=== PATIENT | female | born 1980 | race Caucasian/White ===

== ENCOUNTER 2016-10-14 12:02 | Emergency (ER) | payer SELFPAY ==
--- NOTE | 2016-10-14 12:31 | ER Document Report ---
ED Medical Screen (RME) - General Chief Complaint: Toothache Stated Complaint: TOOTH PAIN Mode of Arrival: Ambulatory Information source: Patient Notes: 36 y/o F presents to ED c/o left sided dental pain since yesterday. Denies difficulty breathing or swallowing. I have greeted and performed a rapid initial assessment of this patient. A comprehensive ED assessment and evaluation of the patient, analysis of test results and completion of the medical decision making process will be conducted by additional ED providers. TRAVEL OUTSIDE OF THE [place] IN LAST 30 DAYS: No - Related Data Allergies/Adverse Reactions: tramadol Allergy (Verified 10/14/16 12:22) Past Medical History - Social History Chew tobacco use (# tins/day): No Frequency of alcohol use: Rare Drug Abuse: None Renal/ Medical History: Denies: Hx Peritoneal Dialysis Physical Exam - Vital signs Vitals: Temp Pulse Resp BP Pulse Ox 98.3 F 74 16 150/95 H 97 10/14/16 12:19 10/14/16 12:19 10/14/16 12:19 10/14/16 12:19 10/14/16 12:19 - General General appearance: Appears well, Alert In distress: None Course - Vital Signs Vital signs: Temp Pulse Resp BP Pulse Ox 98.3 F 74 16 150/95 H 97 10/14/16 12:19 10/14/16 12:19 10/14/16 12:19 10/14/16 12:19 10/14/16 12:19
--- NOTE | 2016-10-14 14:27 | ER Document Report ---
HPI - HPI Patient complains to provider of: dental pain Onset: Yesterday Onset/Duration: Gradual Quality of pain: Achy Pain Level: 5 Context: Patient complains of pain from a broken tooth that started yesterday. No fever or facial swelling. Associated Symptoms: Other - Dental pain Exacerbated by: Denies Relieved by: Denies Similar symptoms previously: Yes Recently seen / treated by doctor: No - ROS ROS below otherwise negative: Yes Systems Reviewed and Negative: Yes All other systems reviewed and negative - CONSTITUTIONAL Constitutional: DENIES: Fever - EENT Notes: Dental pain - RESPIRATORY Respiratory: DENIES: Trouble Breathing, Coughing - GASTROINTESTINAL Gastrointestinal: DENIES: Nausea, Patient vomiting - MUSCULOSKELETAL Musculoskeletal: DENIES: Back Pain, Neck Pain - DERM Skin Color: Normal Skin Problems: None Past Medical History - General Information source: Patient - Social History Smoking Status: Current Every Day Smoker Chew tobacco use (# tins/day): No Frequency of alcohol use: Rare Drug Abuse: None Occupation: none Lives with: Family Family History: Reviewed & Not Pertinent Patient has suicidal ideation: No Patient has homicidal ideation: No - Medical History Medical History: Negative Renal/ Medical History: Denies: Hx Peritoneal Dialysis Past Surgical History: Reports: Hx Section, Hx Herniorrhaphy, Hx Tubal Ligation Vertical Provider Document - CONSTITUTIONAL Agree With Documented VS: Yes Exam Limitations: No Limitations General Appearance: WD/WN, No Apparent Distress - INFECTION CONTROL TRAVEL OUTSIDE OF THE [place] IN LAST 30 DAYS: No - HEENT HEENT: Atraumatic, Normocephalic Mouth Diagram: 1 - Dental decay, fracture, tenderness, no trismus, no sublingual or submental swelling - NECK Neck: Normal Inspection, Supple. negative: Lymphadenopathy-Left, Lymphadenopathy-Right - RESPIRATORY Respiratory: Breath Sounds Normal, Chest Non-Tender O2 Sat by Pulse Oximetry: 97 - CARDIOVASCULAR Cardiovascular: Regular Rate, Regular Rhythm, No Murmur - MUSCULOSKELETAL/EXTREMETIES Musculoskeletal/Extremeties: MAEW - NEURO Level of Consciousness: Awake, Alert, Appropriate Motor/Sensory: No Motor Deficit - DERM Integumentary: Warm, Dry, No Rash Course - Vital Signs Vital signs: Temp Pulse Resp BP Pulse Ox 98.3 F 74 16 150/95 H 97 10/14/16 12:19 10/14/16 12:19 10/14/16 12:19 10/14/16 12:19 10/14/16 12:19 Discharge - Discharge Clinical Impression: Pain due to dental caries, Elevated blood pressure reading Condition: Stable Disposition: HOME, SELF-CARE Instructions: Oral Narcotic Medication ([facility]), Toothache ([facility]), Penicillin V K ( [facility]), [facility] Additional Instructions: Return immediately for any new or worsening symptoms Followup with your primary care provider, call tomorrow to make a followup appointment Follow up with a dental provider Prescriptions: Oxycodone HCl/Acetaminophen [Percocet 5-325 mg Tablet] 1 tab PO ASDIR PRN #15 tablet PRN Reason: Penicillin V Potassium [Penicillin Vk 500 mg Tablet] 500 mg PO BID #20 tablet Forms: Elevated Blood Pressure Referrals: [facility] [Provider Group] - Follow up as needed [facility] [Provider Group] - Follow up as needed
[2016-10-14 14:31] VITALS: BP 142/90
== END 2016-10-14 14:31 | disposition home or self-care (01) ==
LOC: ER 12:02
DX: K02.9 Dental caries, unspecified (principal); K08.89 Other specified disorders of teeth and supporting structures; F17.200 Nicotine dependence, unspecified, uncomplicated; R03.0 Elevated blood-pressure reading, without diagnosis of hypertension
CPT/HCPCS: 99282

== ENCOUNTER 2017-02-13 21:35 | Emergency (ER) | payer MEDICAID ==
--- NOTE | 2017-02-14 01:40 | ER Document Report ---
HPI - HPI Patient complains to provider of: dental Pain Onset: This afternoon Onset/Duration: Gradual Quality of pain: Achy Pain Level: 5 Context: Pt complains of dental pain to broken tooth to left lower jaw. Patient without any facial swelling. Patient is concerned that she has a dental infection. No fever Associated Symptoms: Other - dental pain Exacerbated by: Denies Relieved by: Denies Similar symptoms previously: Yes Recently seen / treated by doctor: No - ROS ROS below otherwise negative: Yes Systems Reviewed and Negative: Yes All other systems reviewed and negative - EENT Notes: dental pain - NEURO Neurology: DENIES: Weakness - RESPIRATORY Respiratory: DENIES: Coughing - GASTROINTESTINAL Gastrointestinal: DENIES: Nausea, Patient vomiting - MUSCULOSKELETAL Musculoskeletal: DENIES: Neck Pain - DERM Skin Color: Normal Skin Problems: None Past Medical History - General Information source: Patient - Social History Smoking Status: Current Every Day Smoker Frequency of alcohol use: Occasional Drug Abuse: None Occupation: [employer] Lives with: Family Family History: Reviewed & Not Pertinent Patient has suicidal ideation: No Patient has homicidal ideation: No - Medical History Medical History: Negative Renal/ Medical History: Denies: Hx Peritoneal Dialysis Past Surgical History: Reports: Hx Section, Hx Cholecystectomy, Hx Herniorrhaphy, Hx Tubal Ligation Vertical Provider Document - CONSTITUTIONAL Agree With Documented VS: Yes Exam Limitations: No Limitations General Appearance: WD/WN, No Apparent Distress - INFECTION CONTROL TRAVEL OUTSIDE OF THE [place] IN LAST 30 DAYS: No - HEENT HEENT: Atraumatic, Normocephalic. negative: Pharyngeal Exudate, Pharyngeal Tenderness, Pharyngeal Erythema Mouth Diagram: 1 - dental fracture, tenderness, no abscess, no trismus - NECK Neck: Normal Inspection, Supple. negative: Lymphadenopathy-Left, Lymphadenopathy-Right - RESPIRATORY Respiratory: Breath Sounds Normal, No Respiratory Distress O2 Sat by Pulse Oximetry: 95 - CARDIOVASCULAR Cardiovascular: Regular Rate, Regular Rhythm, No Murmur - MUSCULOSKELETAL/EXTREMETIES Musculoskeletal/Extremeties: MAEW - NEURO Level of Consciousness: Awake, Alert, Appropriate Motor/Sensory: No Motor Deficit - DERM Integumentary: Warm, Dry Course - Re-evaluation Re-evalutation: 06/20/17 01:41 The patient has been informed that they may have pre-hypertension or hypertension based on a blood pressure reading in the emergency department. I recommend that patient call the primary care provider listed on their discharge instructions or a physician of their choice by this week to arrange follow-up for further evaluation of possible pre-hypertension her hypertension. - Vital Signs Vital signs: Temp Pulse Resp BP Pulse Ox 98.2 F 87 20 151/109 H 95 02/13/17 21:38 02/13/17 21:38 02/13/17 21:38 02/13/17 21:38 02/13/17 21:38 Discharge - Discharge Clinical Impression: Toothache, Elevated blood pressure reading Condition: Stable Disposition: HOME, SELF-CARE Instructions: Oral Narcotic Medication ([facility]), Toothache ([facility]), Penicillin V K ( [facility]), Dentist Additional Instructions: Return immediately for any new or worsening symptoms Followup with your primary care provider, call tomorrow to make a followup appointment to recheck your blood pressure Follow-up with dentist, call tomorrow for an appointment Prescriptions: Naproxen [Naprosyn 250 Nmg Tablet] 1 tab PO BID #14 tablet Penicillin V Potassium [Penicillin Vk 500 mg Tablet] 500 mg PO BID #20 tablet Forms: Elevated Blood Pressure Referrals: [facility] [Provider Group] - Follow up as needed
[2017-02-14] MEDS ORDERED: PENICILLIN V POTASSIUM 500 MG TABLET PO ONE (01:42)
[2017-02-14] MEDS ORDERED: HYDROCODONE/ACETAMINOPHEN 5-325 MG 6 TAB/DSPK PO PRN (01:42)
[2017-02-14 02:50] VITALS: BP 134/99
== END 2017-02-14 02:50 | disposition home or self-care (01) ==
LOC: ER 21:35
DX: K08.89 Other specified disorders of teeth and supporting structures (principal); R03.0 Elevated blood-pressure reading, without diagnosis of hypertension; R68.84 Jaw pain; F17.200 Nicotine dependence, unspecified, uncomplicated
CPT/HCPCS: 99282; J3490

== ENCOUNTER 2017-10-18 11:19 | Emergency (ER) | payer MEDICAID ==
[2017-10-18] MEDS ORDERED: PENICILLIN V POTASSIUM 500 MG TABLET PO ONE (13:36)
[2017-10-18] MEDS ORDERED: ACETAMINOPHEN WITH CODEINE #3 TABLET PO ONE (13:37)
--- NOTE | 2017-10-18 13:37 | ER Document Report ---
HPI - HPI Onset: This morning Onset/Duration: Gradual Quality of pain: Achy Pain Level: 5 Context: Patient presents complaining of dental pain to the right upper and lower jaw that started today. Patient denies any fever or facial swelling. Associated Symptoms: Other - Dental pain. denies: Fever Exacerbated by: Denies Relieved by: Denies Similar symptoms previously: Yes Recently seen / treated by doctor: No - ROS ROS below otherwise negative: Yes Systems Reviewed and Negative: Yes All other systems reviewed and negative - CONSTITUTIONAL Constitutional: DENIES: Fever, Chills - EENT Notes: Dental pain - GASTROINTESTINAL Gastrointestinal: DENIES: Nausea - MUSCULOSKELETAL Musculoskeletal: DENIES: Extremity pain - DERM Skin Color: Normal Skin Problems: None Past Medical History - General Information source: Patient - Social History Smoking Status: Current Every Day Smoker Smoking Education Provided: Yes Frequency of alcohol use: Occasional Drug Abuse: None Occupation: [employer] with: Family Family History: Reviewed & Not Pertinent - Medical History Medical History: Negative Renal/ Medical History: Denies: Hx Peritoneal Dialysis Past Surgical History: Reports: Hx Section, Hx Cholecystectomy, Hx Herniorrhaphy, Hx Tubal Ligation - Immunizations Hx Diphtheria, Pertussis, Tetanus Vaccination: Yes Vertical Provider Document - CONSTITUTIONAL Agree With Documented VS: Yes Exam Limitations: No Limitations General Appearance: WD/WN, No Apparent Distress - INFECTION CONTROL TRAVEL OUTSIDE OF THE [place] IN LAST 30 DAYS: No - HEENT HEENT: Atraumatic, Normocephalic. negative: Pharyngeal Exudate, Pharyngeal Tenderness, Pharyngeal Erythema, Tympanic Membrane Red, Tympanic Membrane Bulging Mouth Diagram: 1 - Dental caries, tenderness 2 - Dental caries, tenderness Notes: No trismus, no sublingual or submental swelling, no potential airway compromise - NECK Neck: Normal Inspection, Supple. negative: Lymphadenopathy-Left, Lymphadenopathy-Right - RESPIRATORY Respiratory: Breath Sounds Normal, No Respiratory Distress O2 Sat by Pulse Oximetry: 98 - CARDIOVASCULAR Cardiovascular: Regular Rate, Regular Rhythm, No Murmur - BACK Back: Normal Inspection - MUSCULOSKELETAL/EXTREMETIES Musculoskeletal/Extremeties: HEATH ANAND - NEURO Level of Consciousness: Awake, Alert, Appropriate Motor/Sensory: No Motor Deficit Course - Re-evaluation Re-evalutation: 10/18/17 13:36 The patient has been informed that they may have pre-hypertension or hypertension based on a blood pressure reading in the emergency department. I recommend that patient call the primary care provider listed on their discharge instructions or a physician of their choice by this week to arrange follow-up for further evaluation of possible pre-hypertension or hypertension. Controlled substance database reviewed patient encouraged to follow-up with. Dental care provider for further management. Patient advised that emergency department does not manage chronic painful conditions. - Vital Signs Vital signs: Temp Pulse Resp BP Pulse Ox 98.4 F 90 20 150/112 H 98 10/18/17 11:56 10/18/17 11:56 10/18/17 11:56 10/18/17 11:56 10/18/17 11:56 Discharge - Discharge Clinical Impression: Elevated blood pressure reading, Toothache Condition: Stable Disposition: HOME, SELF-CARE Instructions: Dentist, Oral Narcotic Medication ([facility]), Penicillin V K ([facility]), Toothache ([facility]) Additional Instructions: Return immediately for any new or worsening symptoms Followup with your primary care provider, call tomorrow to make a followup appointment Follow-up with a dental care provider for further evaluation Prescriptions: Acetaminophen with Codeine [Acetaminophen-Cod #3 Tablet] 1 each PO Q6 PRN #12 tablet PRN Reason: Penicillin V Potassium [Penicillin Vk 500 mg Tablet] 500 mg PO BID #20 tablet Forms: Elevated Blood Pressure, Smoking Cessation Education, Return to Work Referrals: [facility] [Provider Group] - Follow up tomorrow
[2017-10-18 13:59] VITALS: BP 151/99
== END 2017-10-18 13:59 | disposition home or self-care (01) ==
LOC: ER 11:19
DX: K02.9 Dental caries, unspecified (principal); K08.89 Other specified disorders of teeth and supporting structures; R03.0 Elevated blood-pressure reading, without diagnosis of hypertension; F17.200 Nicotine dependence, unspecified, uncomplicated
CPT/HCPCS: 99282; J3490

== ENCOUNTER 2017-12-03 11:38 | Emergency (ER) | payer SELFPAY ==
--- NOTE | 2017-12-03 12:02 | ER Document Report ---
HPI - HPI Patient complains to provider of: Abscess on her left vagina Onset: This morning Onset/Duration: Sudden Pain Level: 3 Context: 37-year-old female complaining of swelling and pain to her left vagina. No history of Bartholin's gland cyst or abscess. No fever or chills. Nondiabetic. Associated Symptoms: None Exacerbated by: Movement, Walking Relieved by: Denies Similar symptoms previously: No Recently seen / treated by doctor: No - ROS ROS below otherwise negative: Yes Systems Reviewed and Negative: Yes All other systems reviewed and negative Past Medical History - General Information source: Patient - Social History Smoking Status: Unknown if Ever Smoked Frequency of alcohol use: None Drug Abuse: None Lives with: Spouse/Significant other Family History: Reviewed & Not Pertinent - Medical History Medical History: Negative Renal/ Medical History: Denies: Hx Peritoneal Dialysis Past Surgical History: Reports: Hx Section, Hx Cholecystectomy, Hx Herniorrhaphy, Hx Tubal Ligation - Immunizations Hx Diphtheria, Pertussis, Tetanus Vaccination: Yes Vertical Provider Document - CONSTITUTIONAL Agree With Documented VS: Yes - INFECTION CONTROL TRAVEL OUTSIDE OF THE [place] IN LAST 30 DAYS: No - HEENT HEENT: Normocephalic - NECK Neck: Supple - GI/ABDOMEN Gastrointestinal: Abdomen Soft, Abdomen Non-Tender - REPRODUCTIVE Notes: large fluctuant superior left labia majora abscess - MUSCULOSKELETAL/EXTREMETIES Musculoskeletal/Extremeties: MAEW - NEURO Level of Consciousness: Awake, Alert - DERM Integumentary: Warm, Dry, Abscess Course - Vital Signs Vital signs: Temp Pulse Resp BP Pulse Ox 98.2 F 84 20 168/95 H 97 12/03/17 11:44 12/03/17 11:44 12/03/17 11:44 12/03/17 11:44 12/03/17 11:44 Procedures - Incision and Drainage Left Labia Time completed: 13:44 Type: Simple Anesthetic type: 1% Lidocaine mL's of anesthetic: 5 Blade size: 11 I&D procedure: Betadine prep applied Incision Method: Incision made by scalpel Amount/type of drainage: large pus Discharge - Discharge Clinical Impression: Left labia abscess incision and drainage Condition: Good Disposition: HOME, SELF-CARE Instructions: Abscess ([facility]), Trimethoprim-Sulfa ([facility]), Post Incision and Drainage Additional Instructions: warm compress septra and keflex antibiotics to er if worsing symptoms keep the packing in for at least 24 hours Prescriptions: Cephalexin Monohydrate [Keflex 500 mg Capsule] 500 mg PO QID #40 capsule Oxycodone HCl/Acetaminophen [Percocet 5-325 mg Tablet] 1 - 2 tab PO ASDIR PRN # 10 tablet PRN Reason: Sulfamethoxazole/Trimethoprim [Sulfamethoxazole-Tmp Ds Tablet] 1 each PO BID # 14 tablet
[2017-12-03] MEDS ORDERED: OXYCODONE-ACETAMINOPHEN 5-325 MG TABLET PO ONE (12:19)
[2017-12-03] MEDS ORDERED: LIDOCAINE 4%/TETRACAINE 0.5%/EPI 0.18% 5 ML TOPICAL SOLN TOP ONE (12:20)
[2017-12-03] MEDS ORDERED: SULFAMETHOXAZOLE/TRIMETHOPRIM 800-160 MG TABLET PO ONE (12:21)
[2017-12-03] MEDS ORDERED: ONDANSETRON 4 MG TAB.RAPDIS PO ONE (12:21)
[2017-12-03] MEDS ORDERED: CEPHALEXIN 500 MG CAPSULE PO ONE (12:21)
[2017-12-03] MEDS ORDERED: LIDOCAINE 1% INJ-PF (10 MG/ML) 30 ML SDV ONE (13:40)
[2017-12-03] MEDS ORDERED: LIDOCAINE 1% INJ-PF (10 MG/ML) 30 ML SDV INJ ONE (13:51)
[2017-12-03 14:18] VITALS: BP 142/84
== END 2017-12-03 14:18 | disposition home or self-care (01) ==
LOC: ER 11:38
DX: N76.4 Abscess of vulva (principal)
CPT/HCPCS: 99283; 56405; S0119; J3490 ×2

== ENCOUNTER 2018-08-15 12:36 | Emergency (ER) | payer SELFPAY ==
[2018-08-15] MEDS ORDERED: LIDOCAINE 2% VISCOUS SOLN 20 ML UDCUP PO ONE (14:02)
[2018-08-15] MEDS ORDERED: PENICILLIN V POTASSIUM 500 MG TABLET PO ONE (14:02)
[2018-08-15] MEDS ORDERED: IBUPROFEN 800 MG TABLET PO ONE (14:02)
--- NOTE | 2018-08-15 14:10 | ER Document Report ---
ED Oral Problem - General Chief Complaint: Toothache Stated Complaint: TOOTHACHE Time Seen by Provider: 08/15/18 13:42 Mode of Arrival: Ambulatory Information source: Patient Notes: 37 old female presented to ED for complaint of severe dental pain to tooth #18. Tooth #19 is off at the gumline tooth #18 has a very large dental cavity. Patient states that the pain started severe this morning and is extreme at this time. Patient's blood pressure when she came in was 189/122 when I took her blood pressure it was 192/118. Patient states she came to the emergency room mostly to get some antibiotics. She states she has not been to a doctor or dentist in years. TRAVEL OUTSIDE OF THE [place] IN LAST 30 DAYS: No - HPI Patient complains to provider of: Jaw pain, Toothache Onset: This morning Onset: Gradual Quality of pain: Sharp, Throbbing Severity: Severe Associated symptoms: Toothache, Other - Blood pressure very high PHYSICAL EXAMINATION: GENERAL: Well-appearing, well-nourished and in no acute distress. HEAD: Atraumatic, normocephalic. EYES: Pupils equal round and reactive to light, extraocular movements intact, sclera anicteric, conjunctiva are normal. ENT: nares patent, oropharynx clear without exudates. Moist mucous membranes. NECK: Normal range of motion, supple without lymphadenopathy LUNGS: Breath sounds clear to auscultation bilaterally and equal. No wheezes rales or rhonch i. HEART: Regular rate and rhythm without murmurs ABDOMEN: Soft, nontender, normoactive bowel sounds. No guarding, no rebound. No masses appreciated. EXTREMITIES: Normal range of motion, no pitting or edema. No cyanosis. NEUROLOGICAL: No focal neurological deficits. Moves all extremities spon taneously and on command. PSYCH: Normal mood, normal affect. SKIN: Warm, Dry, normal turgor, no rashes or lesions noted. 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 Lives with: Spouse/Significant other Family History: Reviewed & Not Pertinent Patient has suicidal ideation: No Patient has homicidal ideation: No - Past Medical History Cardiac Medical History: Reports: Hx Hypertension - States only at MD or pain Pulmonary Medical History: Reports: None EENT Medical History: Reports: None Neurological Medical History: Reports: None Endocrine Medical History: Reports: None Renal/ Medical History: Reports: None Malignancy Medical History: Reports: None GI Medical History: Reports: Hx Hiatal Hernia - surgically repaired Musculoskeletal Medical History: Reports None Skin Medical History: Reports None Psychiatric Medical History: Reports: None Traumatic Medical History: Reports: None Infectious Medical History: Reports: None Past Surgical History: Reports: Hx Section, Hx Cholecystectomy, Hx Inguinal Hernia, Hx Tubal Ligation - Immunizations Immunizations up to date: No Hx Diphtheria, Pertussis, Tetanus Vaccination: No Review of Systems - Review of Systems Constitutional: No symptoms reported EENT: Mouth pain, Dental problem Cardiovascular: No symptoms reported Respiratory: No symptoms reported Gastrointestinal: No symptoms reported Genitourinary: No symptoms reported Female Genitourinary: No symptoms reported Musculoskeletal: No symptoms reported Skin: No symptoms reported Hematologic/Lymphatic: No symptoms reported Neurological/Psychological: No symptoms reported Physical Exam - Vital signs Vitals: Temp Pulse Resp BP Pulse Ox 98.6 F 81 16 188/113 H 98 08/15/18 13:07 08/15/18 13:07 08/15/18 13:07 08/15/18 13:07 08/15/18 13:07 Interpretation: Hypertensive - HEENT Head: Normocephalic, Atraumatic Eyes: Normal Pupils: PERRL Ears: Normal External canal: Normal Tympanic membrane: Normal Sinus: Normal Nasal: Normal Mouth/Lips: Caries - Multiple caries throughout the mouth. The tooth #17 is off at the gumline with a dental cavity on tooth #18 Pharynx: Normal Neck: Normal - Respiratory Respiratory status: No respiratory distress Chest status: Nontender Breath sounds: Normal Chest palpation: Normal - Cardiovascular Rhythm: Regular Heart sounds: Normal auscultation Murmur: No Course - Re-evaluation Re-evalutation: 08/15/18 22:10 Discussed blood pressure with Dr. Zheng. She stated the patient would need labs and EKG to ensure that she did not have any end organ damage. When labs return patient does have diabetes as well as high blood pressure. Patient states she has not been to a doctor years. Patient was treated with Metformin and lisino pril and discharged home with prescription for Metformin and lisinopril. Patient was instructed [facility]. Awais Whyte internet media planner was contacted and she will follow- up with the patient tomorrow to ensure patient does follow-up. - Vital Signs Vital signs: Temp Pulse Resp BP Pulse Ox 98.2 F 74 18 170/101 H 98 08/15/18 15:32 08/15/18 15:32 08/15/18 15:32 08/15/18 15:32 08/15/18 15:32 - Laboratory Result Diagrams: 08/15/18 14:40 08/15/18 14:40 Laboratory results interpreted by me: 08/15/18 08/15/18 08/15/18 14:40 14:40 14:55 WBC 11.1 H RDW 14.2 H Sodium 136.5 L Creatinine 0.51 L Glucose 218 H Total Protein 6.2 L Albumin 3.4 L Urine Protein >=500 H Urine Glucose (UA) 150 H Discharge - Discharge Clinical Impression: Pain due to dental caries, Newly diagnosed diabetes HTN (hypertension) Qualifiers: Hypertension type: unspecified Qualified Code(s): I10 - Essential (primary) hypertension Condition: Stable Disposition: HOME, SELF-CARE Instructions: Family Physicians / Practices Additional Instructions: TOOTHACHE: Your pain is due to dental decay. The tooth must be repaired in order for you to feel better. You will, therefore, be referred to a dentist. We do not have dentists on the staff at [facility]. Severe swelling or drainage around a tooth usually means a dental abscess. This also requires evaluation and treatment by the dentist, but antibiotics may be prescribed while awaiting dental treatment. You should be rechecked immediately if you develop major swelling of the face, increasing pain, a lump in the jaw or gums, headache, difficulty swallowing, or fever. Diabetes You have an abnormally high blood sugar, suspicious for diabetes. Not all high blood sugar requires long-term treatment. High blood sugar can be due to medications, , or the stress of illness. (These cases are "borderline diabetes.") If the doctor feels your high blood sugar might get better with time, you may not require treatment now. You will be scheduled for further evaluation. It's very important that you follow through. Uncontrolled high blood sugar leads to early heart disease, strokes, nerve damage, eye damage, and kidney damage. All diabetics should follow a diet designed to control the blood sugar. Overweight diabetics should exercise regularly and lose weight. If this is not sufficient to control the blood sugar, pills or insulin shots are necessary. Younger people who develop diabetes almost always require insulin daily. Home testing of blood sugars or urine sugar is required. Diabetic teaching is available to help you figure insulin doses and monitor the blood sugar. Call the physician if there is faintness, excess sleepiness, or very rapid breathing. If hypoglycemia (LOW blood sugar) develops, symptoms are shakiness, weakness, sweating, and confusion. In this case, you should eat or drink something with sugar at once. HIGH BLOOD PRESSURE REQUIRING TREATMENT: Your blood pressure is high. This is called "hypertension." Today's reading was __192/118 (normal is less than 140/90). Your history and exam suggest that this is not a temporary problem. You need treatment of your blood pressure. If left untreated, high blood pressure greatly increases your risk of heart attack and stroke. Please don't ignore this problem. If you have blood pressure medicine but aren't using it regularly, start taking it again. Some simple things you can do to help are: Get some aerobic exercise for at least 20 minutes on a daily basis. (See your doctor before beginning any new exercise program.) Eat a low-fat diet. Lose excess weight. Avoid salty foods and avoid adding salt to any of the foods you eat. Avoid diet pills, decongestants, "energizing" herbs, and other medicines that elevate blood pressure. There are many different medicines that treat blood pressure. If your medication causes unpleasant side effects, call your doctor. There are others you can try. Treating hypertension is a life-long investment in your health. ANGIOTENSIN CONVERTING ENZYME INHIBITOR MEDICATION: "DAXA inhibitor" drugs are used to lower high blood pressure (or to reduce the "work" of the heart in patients with heart failure). These drugs block an enzyme that makes your blood vessels constrict and makes you retain salt. The result is lower blood pressure. DAXA inhibitors cause few side effects. The most common side effect is a dry nagging cough. Occasionally, lightheadedness may occur while you get used to the medicine. Some patients may retain extra potassium (this is a problem if you are taking potassium supplements, potassium-containing salt substitutes, or a potassium-retaining drug such as triamterene, spironolactone, or amiloride). If you are taking lithium, the lithium level must be rechecked after starting an DAXA inhibitor. DAXA inhibitors should NOT be used during . Contact the doctor or return if you develop severe lightheadedness, wheeze, weakness, palpitations or other new symptoms. Glucophage (Metformin hydrochloride) Glucophage is used to treat diabetes. It helps insulin move sugar from your blood stream into your cells. It also slows production of new blood sugar. Glucophage can be combined with another type of diabetes pill or with insulin injections. Glucophage should NOT be used by patients, true insulin-dependent (juvenile) diabetics, or those prone to acidosis (severe kidney disease, alcoholism, severe heart failure). You MUST NOT receive iodine-containing x-ray dye while taking Glucophage. The medicine must be stopped 2 days before the test. Be certain your doctor is aware you are taking Glucophage before undergoing IVP, angiograms, or other x- rays that require IV injection of dye. Glucophage commonly causes decreased appetite. Some patients may have nausea, vomiting, or diarrhea. If the side effects are severe, call your doctor. Glucophage will not cause hypoglycemia (low blood sugar) when used alone. Some patients using diabetes pills or insulin may experience symptoms of hypoglycemia (flushing, sweats, racing heart, lightheadedness). Eat or drink something sweet. Contact your doctor for further instructions. You may need to reduce the dose of insulin or of the other diabetes pill. PENICILLIN V K: You have been given a prescription for Penicillin VK. Your physician has determined that this is the best antibiotic for your condition. Pen VK can be taken with meals, however more of the antibiotic gets into the bloodstream if it's taken on an empty stomach. Penicillin usually has no side effects. However, allergy to penicillins is common. If you have had an allergic reaction to any drug of the penicillin family, you should never take any other penicillin. Notify your doctor at once if you develop hives, itching, swelling, faintness, or shortness of breath. FOLLOW-UP CARE: You have been referred for follow-up care to the dentists listed below. Call the dentists office for an appointment as you were instructed or within the next two days. If you experience worsening or a significant change in your symptoms, notify the physician immediately or return to the Emergency Department at any time for re-evaluation. [facility] [address] [place], [place] [facility] [address] [place] [address] [facility] [address] [facility] [address] [facility] ([address]th) [facility] [address] [email or web address] [address] [place] [address] Monday- 8:00am to 5:00 pm Will see patients from other [place] [facility]. Charges based on income and family size and accepts Medicare, Medicaid, and Insurances Will pull molars [facility] [id number] Hours of Operation 8:00 am - 4:30 pm weekdays The following dental offices accept Medicaid: [facility] Dr. Hernandez Dr. Osborne Dr. Salmeron Dr. Whitehead Franko Rae Lutsavage, and [facility] Dr. Grier ([place]) Dr. Moran ([place]) [facility] Drs. Interiano and Sulaiman ([place]) Dr. Alcala ([place]) [facility] Dr. Cruz ([place]) Drs. Lino and ([place]) Medicaid Care Line Prescriptions: Lisinopril [Prinivil] 10 mg PO DAILY #30 tablet Metformin HCl [Glucophage 500 mg Tablet] 500 mg PO BID #60 tab Penicillin V Potassium [Penicillin Vk 500 mg Tablet] 500 mg PO BID #20 tablet Forms: Elevated Blood Pressure, Return to Work Referrals: [facility] [Provider Group] - Follow up as needed [facility] [Provider Group] - Follow up as needed
[2018-08-15] MEDS ORDERED: LISINOPRIL 10 MG TABLET PO ONE (14:24)
[2018-08-15] MEDS ORDERED: LIDOCAINE 1% INJ-PF (10 MG/ML) 30 ML SDV INJ ONE (14:25)
[2018-08-15] MEDS ORDERED: BUPIVACAINE HCL 0.5 % INJ/PF 30 ML SDV INJ ONE (14:25)
[2018-08-15 14:47] LABS: ABSOLUTE BASOPHILS # (AUTO) 0.1 10^3/uL (0.0-0.2); ABSOLUTE EOSINOPHILS # (AUTO) 0.1 10^3/uL (0.0-0.6); ABSOLUTE LYMPHOCYTES (AUTO) 3.4 10^3/uL (0.5-4.7); ABSOLUTE MONOCYTES (AUTO) 0.5 10^3/uL (0.1-1.4); ABSOLUTE NEUT (AUTO) 7.1 10^3/uL (1.7-8.2); BASOPHILS % (AUTO) 0.7 % (0-2); EOSINOPHILS % (AUTO) 0.7 % (0-6); HEMATOCRIT 40.7 % (36.0-47.0); HEMOGLOBIN 13.8 g/dL (12.0-15.5); LYMPHOCYTES % (AUTO) 30.4 % (13-45); MEAN CORPUSCULAR HEMOGLOBIN 29.2 pg (27.0-33.4); MEAN CORPUSCULAR HGB CONC 33.8 g/dL (32.0-36.0); MEAN CORPUSCULAR VOLUME 87 fl (80-97); MONOCYTES % (AUTO) 4.2 % (3-13); PLATELET COUNT 321 10^3/uL (150-450); RED BLOOD COUNT 4.71 10^6/uL (3.72-5.28); RED CELL DISTRIBUTION WIDTH 14.2 % (11.5-14.0); TOTAL CELLS COUNTED % (AUTO) 100 %; WHITE BLOOD COUNT 11.1 10^3/uL (4.0-10.5)
[2018-08-15 15:08] LABS: APPEARANCE,URINE CLEAR; BILIRUBIN,URINE NEGATIVE (NEGATIVE); COLOR,URINE STRAW; GLUCOSE, URINE 150 mg/dL (NEGATIVE); KETONES,URINE NEGATIVE (NEGATIVE); LEUKOCYTE ESTERASE,URINE NEGATIVE (NEGATIVE); NITRITE,URINE NEGATIVE (NEGATIVE); PROTEIN,URINE >=500 mg/dL (NEGATIVE); URINE SPECIFIC GRAVITY 1.005; UROBILINOGEN,URINE NEGATIVE mg/dL (<2.0)
[2018-08-15 15:13] LABS: ALANINE AMINOTRANSFERASE 11 U/L (9-52); ALBUMIN 3.4 g/dL (3.5-5.0); ALKALINE PHOSPHATASE 120 U/L (38-126); ANION GAP 7 (5-19); ASPARTATE AMINO TRANSFERASE 14 U/L (14-36); BILIRUBIN,DIRECT 0.3 mg/dL (0.0-0.4); BILIRUBIN,TOTAL 0.4 mg/dL (0.2-1.3); BLOOD UREA NITROGEN 7 mg/dL (7-20); CALCIUM 9.2 mg/dL (8.4-10.2); CARBON DIOXIDE 24 mmol/L (22-30); CHLORIDE 106 mmol/L (98-107); GLUCOSE 218 mg/dL (75-110); POTASSIUM 4.2 mmol/L (3.6-5.0); SODIUM 136.5 mmol/L (137-145); TOTAL PROTEIN 6.2 g/dL (6.3-8.2)
[2018-08-15 15:34] VITALS: BP 170/101
--- NOTE | 2018-08-15 18:43 | EKG REPORT ---
SEVERITY:- NORMAL ECG - SINUS RHYTHM : Confirmed by: Vamsi Bruce MD 15-Aug-2018 18:43:18
== END 2018-08-15 16:06 | disposition home or self-care (01) ==
LOC: ER 12:36
DX: K02.9 Dental caries, unspecified (principal); E11.9 Type 2 diabetes mellitus without complications; I10 Essential (primary) hypertension; K08.89 Other specified disorders of teeth and supporting structures; F17.210 Nicotine dependence, cigarettes, uncomplicated; Z71.6 Tobacco abuse counseling
CPT/HCPCS: 93005; 99406; 99283; 36415; 85025; 80053; 81001; 84484; 93010; J3490 ×3

== ENCOUNTER 2019-05-24 08:07 | Emergency (ER) | payer SELFPAY ==
[2019-05-24] MEDS ORDERED: BENZONATATE 100 MG CAPSULE PO ONE (08:36)
[2019-05-24] MEDS ORDERED: IPRATROPIUM/ALBUTEROL 0.5-2.5 MG/3 ML AMPUL NEB ONE (08:36)
[2019-05-24] MEDS ORDERED: PREDNISONE 20 MG TABLET PO ONE (08:36)
--- NOTE | 2019-05-24 08:41 | ER Document Report ---
ED Respiratory Problem - General Chief Complaint: Cough Stated Complaint: FEVER Time Seen by Provider: 05/24/19 08:28 Notes: Patient is a 38-year-old female who presents to the emergency department with a chief complaint of cold symptoms. Patient states Monday evening she felt like she had a fever as she was having chills and could not get warm. Patient states she does not have a thermometer and did not check her temperature. Patient re ports she feels generally weak all over. Patient reports dry cough. Patient reports some nasal congestion and sinus pressure. Patient reports sore throat and bilateral ear pain. Patient reports when she develops coughing fits she does have some nausea but denies vomiting or diarrhea. Patient reports she does smoke about a pack per day of cigarettes. Patient reports her twin sister did have similar symptoms but reported feeling better after 24 hours. Patient reports decreased appetite. TRAVEL OUTSIDE OF THE [place] IN LAST 30 DAYS: No - Related Data Allergies/Adverse Reactions: tramadol Allergy (Verified 08/15/18 12:38) Past Medical History - General Information source: Patient - Social History Smoking Status: Current Every Day Smoker Cigarette use (# per day): Yes - 1 ppd Lives with: Family Family History: Reviewed & Not Pertinent - Past Medical History Cardiac Medical History: Reports: Hx Hypertension - States only at MD or pain Pulmonary Medical History: Reports: None EENT Medical History: Reports: None Neurological Medical History: Reports: None Endocrine Medical History: Reports: None Renal/ Medical History: Reports: None. Denies: Hx Peritoneal Dialysis Malignancy Medical History: Reports: None GI Medical History: Reports: Hx Hiatal Hernia - surgically repaired Musculoskeletal Medical History: Reports None Skin Medical History: Reports None Psychiatric Medical History: Reports: None Traumatic Medical History: Reports: None Infectious Medical History: Reports: None Past Surgical History: Reports: Hx Abdominal Surgery - hernia repair, Hx Section, Hx Cholecystectomy, Hx Herniorrhaphy, Hx Inguinal Hernia, Hx Tubal Ligation - Immunizations Immunizations up to date: No Hx Diphtheria, Pertussis, Tetanus Vaccination: No Review of Systems - Review of Systems Constitutional: See HPI EENT: See HPI Cardiovascular: No symptoms reported Respiratory: See HPI Gastrointestinal: See HPI Genitourinary: No symptoms reported Female Genitourinary: No symptoms reported Musculoskeletal: No symptoms reported Skin: No symptoms reported Hematologic/Lymphatic: No symptoms reported Neurological/Psychological: No symptoms reported Physical Exam - Vital signs Vitals: Temp Pulse Resp BP Pulse Ox 98.2 F 110 H 18 154/97 H 94 05/24/19 08:10 05/24/19 08:10 05/24/19 08:10 05/24/19 08:10 05/24/19 08:10 Interpretation: Hypertensive, Tachycardic - Notes Notes: GENERAL: Well-appearing, well-nourished and in no acute distress. + mask in place. HEAD: Atraumatic, normocephalic. EYES: Pupils equal round and reactive to light, extraocular movements intact, sclera anicteric, conjunctiva are normal. ENT: TMs normal, nares patent, oropharynx clear without exudates. Moist mucous membranes. NECK: Normal range of motion, supple without lymphadenopathy or JVD. No nuchal rigidity. LUNGS: Inspiratory wheezing heard in RLL, LLL and Left upper lobe. No rales or rhonchi. HEART: Tachycardiac rate with regular rhythm without murmurs, rubs or gallops. ABDOMEN: Soft, nontender, normoactive bowel sounds. No guarding, no rebound. No masses appreciated. BACK: No cervical, thoracic, lumbar midline tenderness. No saddle anesthesia, normal distal neurovascular exam. GENITOURINARY: Deferred. EXTREMITIES: Normal range of motion, no pitting or edema. No clubbing or cyanosis. NEUROLOGICAL: Cranial nerves II through XII grossly intact. Normal speech, normal gait. PSYCH: Normal mood, normal affect. SKIN: Warm, Dry, normal turgor, no rashes or lesions noted. Course - Re-evaluation Re-evalutation: 05/24/19 08:40 We will obtain a chest x-ray, give a dose of steroids orally, Tessalon Perles and a DuoNeb as the patient does have inspiratory wheezing throughout. Patient does have intermittent dry cough throughout physical examination. Patient is able to speak in full complete sentences and is in no acute distress at this time. 05/24/19 09:18 Patient's wheezing has improved since receiving the DuoNeb. Patient does have some scattered rhonchi in the left upper and lower lobes. Will administer an albuterol nebulizer x1 and give the patient an albuterol inhaler to go. Patient is nontoxic-appearing in no acute distress. Patient aware to use the albuterol inhaler at home as needed 2 puffs every 4 hours. I did educate the patient on smoking cessation. Patient at this time will be diagnosed with bronchitis. Chest x-ray was negative. 05/24/19 09:47 Patient did receive her albuterol nebulizer treatment prior to discharge. Patient is not tachycardic, hypertensive, or hypoxic. Patient's oxygen level has improved from 94 on room air to currently 98% on room air. Patient stable for discharge. - Vital Signs Vital signs: Temp Pulse Resp BP Pulse Ox 98.1 F 92 16 134/80 H 98 05/24/19 09:28 05/24/19 09:28 05/24/19 09:28 05/24/19 09:28 05/24/19 09:28 - Diagnostic Test Radiology reviewed: Reports reviewed Radiology results interpreted by me: 05/24/19 09:00 Chest X-Ray 05/24/19 08:35 IMPRESSION: NO ACUTE RADIOGRAPHIC FINDING IN THE CHEST. Discharge - Discharge Clinical Impression: Bronchitis, Chills, Cough, Wheezing Condition: Stable Disposition: HOME, SELF-CARE Additional Instructions: Today you are seen in the emergency department for cough and shortness of breath. Your chest x-ray was negative for pneumonia. You are being diagnosed with bronchitis with bronchospasm which is wheezing. We did give you a breathing treatment while here in the emergency department which did help with your wheezing. I am prescribing you an oral prescription for prednisone which is a steroid. Please continue to drink plenty of water, try to refrain from smoking if possible as this can make the bronchitis symptoms worse. Please return to the emergency department if you develop a high fever, cough that persists for a few weeks, extreme shortness of breath, chest pain, bloody sputum or any other new or concerning symptoms. BRONCHITIS: You have acute bronchitis. This disease is an infection or inflammation of the air passageways in your lungs. Symptoms usually include cough, low grade fever, shortness of breath, and wheezing. The cough usually persists for a couple of weeks. Most cases of bronchitis get better without antibiotics. We prescribe antibiotics when we believe bacteria are damaging your airways, or if there's high risk the bronchitis will worsen into pneumonia. Increase your fluid intake. A cool mist humidifier may make your lungs more comfortable. An expectorant (cough medicine that loosens phlegm) can help. If you smoke, STOP!!! Recovery from bronchitis can be somewhat slow, but you should see improvement within a day or two. Repeated episodes of bronchitis may result in lung damage -- for example, chronic bronchitis, recurrent pneumonias, or emphysema. Call the doctor if you develop increasing fever, shortness of breath, chest pain, bloody sputum, or otherwise worsen. If you have not improved at all after several days, contact the physician. BRONCHITIS WITH BRONCHOSPASM (WHEEZING): You have bronchitis with bronchospasm (wheezing). Sometimes people develop wheezing with a chest cold. This occurs either because of an underlying tendency toward asthma or because the virus itself irritates the bronchial tubes. This irritation causes cough, shortness of breath, and wheezing. Emergency treatment of bronchospasm may include adrenaline shots or bronchodilator aerosol. You may feel lightheaded and have a rapid pulse for an hour or two. Rest and get plenty of fluids. At home, we'll treat you with a bronchodilator inhaler. Corticosteroids may be required for some patients. Until you recover, avoid chemical fumes, dusts, pollens, and exercising in very cold or dry air. If you smoke, stop now! Most cases of bronchitis get better without antibiotics. We prescribe antibiotics when we believe bacteria are damaging your airways, or if there's high risk the bronchitis will worsen into pneumonia. Increase your fluid intake. A cool mist humidifier may make your lungs more comfortable. An expectorant (cough medicine that loosens phlegm) can help. Repeated episodes of bronchitis and bronchospasm may result in lung damage -- for example, chronic bronchitis, recurrent pneumonias, or emphysema. If you develop a fever, increased wheezing, chest pain, or severe shortness of breath, you should contact the doctor immediately. INHALED BRONCHODILATORS: You have received a treatment of and/or prescription for an inhaled bronchodilator -- a medication which stimulates the airways in the lung to dilate. This improves the flow of air in asthma, bronchitis, and emphysema. These medicines have some similarity to adrenaline, and can cause similar side effects: shakiness, racing heart, and a sense of nervousness. These side effects decrease with time. Contact your doctor if these side effects are keila re. Do not over-use the medicine. Too-frequent use of the inhaler may make it ineffective. Call your doctor if the inhaler is not controlling your symptoms at the prescribed doses. STEROID MEDICATION: You have been given an injection of or oral medicine of the cortisone/steroid class. This medication is used to control inflammation or allergy. Gerry t is usually only given for a short period of time, until the acute process subsides. There are usually no side effects from short-term use of cortisone-like medications. Some persons feel an increased sense of well-being and are not sleepy at bedtime. Long-term use of cortisone medications is best avoided, unless required for a severe condition. If your condition does not remit, or relapses after the course of corticosteroid medication, you should consult your physician. USE OF ACETAMINOPHEN (Tylenol): Acetaminophen may be taken for pain relief or fever control. It's much safer than aspirin, offering a wider range of "safe" dosages. It is safe during . Some brand names are Tylenol, Panadol, Datril, Anacin 3, Tempra, and Liquiprin. Acetaminophen can be repeated every four hours. The following are maximum recommended dosages: >89 pounds or adults 650 mg to 900 mg Acetaminophen can be repeated every four hours. Maximum dose not to exceed 4000 mg a day. SMOKING: If you smoke, you should stop smoking. The tar and chemicals in cigarette smoke are harmful. Smoking has been shown to cause: emphysema chronic bronchitis lung cancer mouth and throat cancer stomach and pancreas cancer premature aging defects In addition, smoking increases ear and lung infections in children of smokers. FOLLOW-UP CARE: If you have been referred to a physician for follow-up care, call the physicians office for an appointment as you were instructed or within the next two days. If you experience worsening or a significant change in your symptoms, notify the physician immediately or return to the Emergency Department at any time for re-evaluation. Prescriptions: Benzonatate [Tessalon Perles 100 mg Capsule] 100 mg PO Q8HP PRN #20 capsule PRN Reason: Prednisone [Deltasone 10 mg Tablet] 10 mg PO ASDIR PRN #21 tablet PRN Reason: Forms: Elevated Blood Pressure, Smoking Cessation Education, Return to Work
--- NOTE | 2019-05-24 08:58 | RADIOLOGY REPORT (SQ) ---
EXAM DESCRIPTION: CHEST 2 VIEWS COMPLETED DATE/TIME: 05/24/2019 8:50 am REASON FOR STUDY: cough, wheezing COMPARISON: None. EXAM PARAMETERS: NUMBER OF VIEWS: two views TECHNIQUE: Digital Frontal and Lateral radiographic views of the chest acquired. RADIATION DOSE: NA LIMITATIONS: none FINDINGS: LUNGS AND PLEURA: No opacities, masses or pneumothorax. No pleural effusion. MEDIASTINUM AND HILAR STRUCTURES: No masses or contour abnormalities. HEART AND VASCULAR STRUCTURES: Heart normal size. No evidence for failure. BONES: No acute findings. HARDWARE: None in the chest. OTHER: No other significant finding. IMPRESSION: NO ACUTE RADIOGRAPHIC FINDING IN THE CHEST. TECHNICAL DOCUMENTATION: JOB ID: [id number] [employer]- All Rights Reserved Reading location - IP/workstation name: [email or web address]
[2019-05-24] MEDS ORDERED: ALBUTEROL SULFATE HFA (90 MCG/PUFF) 8 GM MDI (1 MDI/ER DISP) IH PRN (09:16)
[2019-05-24] MEDS ORDERED: ALBUTEROL SULFATE 0.083% NEB 2.5 MG/3 ML AMPUL NEB ONE (09:16)
[2019-05-24 09:29] VITALS: BP 134/80
== END 2019-05-24 09:45 | disposition home or self-care (01) ==
LOC: ER 08:07
DX: J40 Bronchitis, not specified as acute or chronic (principal); R50.9 Fever, unspecified; H92.03 Otalgia, bilateral; R06.2 Wheezing; F17.210 Nicotine dependence, cigarettes, uncomplicated; Z90.49 Acquired absence of other specified parts of digestive tract; Z98.51 Tubal ligation status
CPT/HCPCS: 94640 ×2; 99283; 71046; J7512; J3490; J7620

== ENCOUNTER 2019-07-29 08:03 | Emergency (ER) | payer SELFPAY ==
[2019-07-29] MEDS ORDERED: LIDOCAINE 1.5%/EPINEPHRINE INJ-PF 30 ML SDV INJ ONE (09:29)
[2019-07-29] MEDS ORDERED: HYDROCODONE/ACETAMINOPHEN 5-325 MG TABLET PO ONE (09:30)
[2019-07-29] MEDS ORDERED: LIDOCAINE 1% INJ (10 MG/ML) 10 ML MDV INJ ONE (09:49)
--- NOTE | 2019-07-29 12:02 | ER Document Report ---
ED General - General Chief Complaint: Abscess Stated Complaint: ABSCESS Time Seen by Provider: 07/29/19 09:05 Mode of Arrival: Ambulatory Notes: 38 year old without h/o MRSA and no previous abcess has left buttocks sts and discharge from boil. Also left thigh has similar sized lesion. Boils increased in size over 2-3 days. TRAVEL OUTSIDE OF THE [place] IN LAST 30 DAYS: No - HPI Onset: Last week Onset/Duration: Gradual Exacerbated by: Denies Relieved by: Denies - Related Data Allergies/Adverse Reactions: tramadol Allergy (Verified 07/29/19 08:07) Past Medical History - Social History Smoking Status: Current Every Day Smoker Chew tobacco use (# tins/day): No Frequency of alcohol use: Rare Drug Abuse: None Family History: Reviewed & Not Pertinent Patient has suicidal ideation: No Patient has homicidal ideation: No - Past Medical History Cardiac Medical History: Reports: Hx Hypertension - States only at MD or pain Renal/ Medical History: Denies: Hx Peritoneal Dialysis GI Medical History: Reports: Hx Hiatal Hernia - surgically repaired Past Surgical History: Reports: Hx Abdominal Surgery - hernia repair, Hx Section, Hx Cholecystectomy, Hx Herniorrhaphy, Hx Inguinal Hernia, Hx Tubal Ligation - Immunizations Immunizations up to date: No Hx Diphtheria, Pertussis, Tetanus Vaccination: No Review of Systems - Review of Systems Constitutional: No symptoms reported EENT: No symptoms reported Cardiovascular: No symptoms reported Respiratory: No symptoms reported Gastrointestinal: No symptoms reported Genitourinary: No symptoms reported Female Genitourinary: No symptoms reported Musculoskeletal: No symptoms reported Skin: See HPI, Other - boils times 2. denies: No symptoms reported Hematologic/Lymphatic: No symptoms reported Neurological/Psychological: No symptoms reported Physical Exam - Vital signs Vitals: Temp Pulse Resp BP Pulse Ox 98.7 F 89 18 142/97 H 97 07/29/19 08:06 07/29/19 08:06 07/29/19 08:06 07/29/19 08:06 07/29/19 08:06 Interpretation: Normal - General General appearance: Appears well, Alert - HEENT Head: Normocephalic, Atraumatic Eyes: Normal Pupils: PERRL - Respiratory Respiratory status: No respiratory distress Chest status: Nontender Breath sounds: Normal Chest palpation: Normal - Cardiovascular Rhythm: Regular Heart sounds: Normal auscultation Murmur: No - Abdominal Inspection: Normal Distension: No distension Bowel sounds: Normal Tenderness: Nontender Organomegaly: No organomegaly - Back Back: Normal, Nontender - Extremities General upper extremity: Normal inspection, Nontender, Normal color, Normal ROM, Normal temperature General lower extremity: Normal inspection, Nontender, Normal color, Normal ROM, Normal temperature, Normal weight bearing. No: Audie's sign - Neurological Neuro grossly intact: Yes Cognition: Normal Orientation: AAOx4 [place] Coma Scale Eye Opening: Spontaneous David Coma Scale Verbal: Oriented David Coma Scale Motor: Obeys Commands David Coma Scale Total: 15 Speech: Normal Motor strength normal: LUE, RUE, LLE, RLE Sensory: Normal - Psychological Associated symptoms: Normal affect, Normal mood - Skin Skin Temperature: Warm Skin Moisture: Dry Skin Color: Other. negative: Normal - With nurse present noted boil left buttocks also smaller boil left thigh. Course - Vital Signs Vital signs: Temp Pulse Resp BP Pulse Ox 98.0 F 82 17 148/90 H 96 07/29/19 12:10 07/29/19 12:10 07/29/19 12:10 07/29/19 12:10 07/29/19 12:10 Procedures - Incision and Drainage Left Thigh Type: Simple Anesthetic type: 1% Lidocaine mL's of anesthetic: 5 Blade size: 11 I&D procedure: Betadine prep applied, Iodoform packing placed Incision Method: Incision made by scalpel - pt tolerated well without apparent complication Discharge - Discharge Clinical Impression: Abscess Condition: Good Disposition: HOME, SELF-CARE Instructions: Abscess ([facility]), Family Physicians / Practices, Post Incision and Drainage, Trimethoprim-Sulfa ([facility]) Additional Instructions: See your doctor in follow up. Rest, fluids, medicines as directed. Please return here for any problems or any concerns. Recheck here Monday am. Prescriptions: Sulfamethoxazole/Trimethoprim [Bactrim Ds Tablet] 1 each PO BID #20 tablet Hydrocodone Bit/Acetaminophen [Hydrocodon-Acetaminophen 5-325] 1 each PO TID #12 tablet Forms: Elevated Blood Pressure, Return to Work
[2019-07-29 12:12] VITALS: BP 148/90
== END 2019-07-29 12:13 | disposition home or self-care (01) ==
LOC: ER 08:03
PROC: 0H9JXZZ Drainage of Left Upper Leg Skin, External Approach (ICD-10-PCS; principal; 2019-07-29)
DX: L02.416 Cutaneous abscess of left lower limb (principal); L02.31 Cutaneous abscess of buttock; F17.200 Nicotine dependence, unspecified, uncomplicated; I10 Essential (primary) hypertension
CPT/HCPCS: 99283; 10060; A6266; J3490

== ENCOUNTER 2019-07-31 10:03 | Emergency (ER) | payer SELFPAY ==
[2019-07-31 10:30] VITALS: BP 144/95
--- NOTE | 2019-07-31 10:42 | ER Document Report ---
ED Medical Screen (RME) - General Chief Complaint: Abscess Recheck Stated Complaint: ABSCESS RECHECK Time Seen by Provider: 07/31/19 10:39 Mode of Arrival: Ambulatory Information source: Patient Notes: 38-year-old female with history of I&D to the left buttocks presents to the emergency department with complaints of worsening pain. Reports she cannot even sit down now. Reports it feels like it is burning. And she also reports the Bactrim is making her nauseated. Denies fever vomiting diarrhea. I have greeted and performed a rapid initial assessment of this patient. A comprehensive ED assessment and evaluation of the patient, analysis of test results and completion of the medical decision making process will be conducted by additional ED providers. Dictation of this chart was performed using voice recognition software; therefore, there may be some unintended grammatical errors. TRAVEL OUTSIDE OF THE [place] IN LAST 30 DAYS: No - Related Data Allergies/Adverse Reactions: tramadol Allergy (Verified 07/31/19 10:38) Home Medications: antibiotic Past Medical History - Social History Chew tobacco use (# tins/day): No Frequency of alcohol use: Rare Drug Abuse: None - Past Medical History Cardiac Medical History: Reports: Hx Hypertension - States only at MD or pain Renal/ Medical History: Denies: Hx Peritoneal Dialysis GI Medical History: Reports: Hx Hiatal Hernia - surgically repaired Past Surgical History: Reports: Hx Abdominal Surgery - hernia repair, Hx Section, Hx Cholecystectomy, Hx Herniorrhaphy, Hx Inguinal Hernia, Hx Tubal Ligation - Immunizations Immunizations up to date: No Hx Diphtheria, Pertussis, Tetanus Vaccination: No Physical Exam - Vital signs Vitals: Temp Pulse Resp BP Pulse Ox 97.7 F 87 18 144/95 H 94 07/31/19 10:29 07/31/19 10:29 07/31/19 10:29 07/31/19 10:29 07/31/19 10:29 Course - Vital Signs Vital signs: Temp Pulse Resp BP Pulse Ox 97.7 F 87 18 144/95 H 94 07/31/19 10:38 07/31/19 10:38 07/31/19 10:38 07/31/19 10:38 07/31/19 10:38
== END 2019-07-31 12:15 | disposition left against medical advice (07) ==
LOC: ER 10:03
DX: L02.31 Cutaneous abscess of buttock (principal); Z98.890 Other specified postprocedural states; R11.0 Nausea; Z88.6 Allergy status to analgesic agent; Z88.5 Allergy status to narcotic agent; Z53.20 Procedure and treatment not carried out because of patient's decision for unspecified reasons
CPT/HCPCS: 99281

== ENCOUNTER 2020-02-28 17:38 | Emergency (ER) | payer SELFPAY ==
[2020-02-28 17:54] VITALS: BP 179/106
[2020-02-28] MEDS ORDERED: IBUPROFEN 800 MG TABLET PO ONE (19:21)
[2020-02-28] MEDS ORDERED: PENICILLIN V POTASSIUM 500 MG TABLET PO ONE (19:21)
--- NOTE | 2020-02-28 19:25 | ER Document Report ---
ED Oral Problem - General Chief Complaint: Toothache Stated Complaint: TOOTH PAIN Time Seen by Provider: 02/28/20 19:18 Notes: CHIEF COMPLAINT: Dental pain for 1 day HPI: 39-year-old female with history of chronically poor dentition presenting for increasing dental pain right upper second molar today. States the tooth fractured 1 to 2 months ago, has not seen a dentist for evaluation of this issue. No facial swelling. No fever. ROS: See HPI - all other systems were reviewed and are otherwise negative Constitutional: no fever Eyes: no drainage, no blurred vision ENT: no runny nose, no sore throat, positive dental pain Integumentary: no rash Allergy: no hives MEDICATIONS: I agree with the patient medications as charted by the RN. ALLERGIES: I agree with the allergies as charted by the RN. PAST MEDICAL HISTORY/PAST SURGICAL HISTORY: Reviewed and agree as charted by RN. SOCIAL HISTORY: Reviewed and agree as charted by RN. FAMILY HISTORY: No significant familial comorbid conditions directly related to patient complaint EXAM: Reviewed vital signs as charted by RN. CONSTITUTIONAL: Alert and oriented and responds appropriately to questions. Well-appearing; well-nourished HEAD: Normocephalic; atraumatic EYES: PERRL; Conjunctivae clear, sclerae non-icteric ENT: normal nose; no rhinorrhea; moist mucous membranes; pharynx without lesions noted, no uvula edema or deviation, no tonsillar hypertrophy, phonation normal. No sublingual swelling. No facial swelling. No trismus. Multiple areas of significantly poor dentition secondary to dental caries. Right upper second molar with erosion of the tooth down to the gingiva. No visible gingival edema. NECK: Supple without meningismus; non-tender; no cervical lymphadenopathy, no masses CARD: Capillary refill less than 3 seconds; symmetric distal pulses RESP: Normal chest excursion without splinting or tachypnea ABD/GI: non-distended BACK: The back appears normal EXT: Normal ROM in all joints; no cyanosis, no effusions, no edema SKIN: Normal color for age and race; warm; dry; good turgor NEURO: Moves all extremities equally; Motor and sensory function intact PSYCH: The patient's mood and manner are appropriate. Grooming and personal hygiene are appropriate. MDM: 39-year-old female with dental pain from dental caries will discharge home on antibiotics short course of pain medication I did review the patient on the [place] narcotics database without finding entry since July 2019 TRAVEL OUTSIDE OF THE [place] IN LAST 30 DAYS: No - Related Data Allergies/Adverse Reactions: tramadol Allergy (Verified 07/31/19 10:38) Past Medical History - Social History Smoking Status: Current Every Day Smoker Family History: Reviewed & Not Pertinent Patient has homicidal ideation: No - Past Medical History Cardiac Medical History: Reports: Hx Hypertension - States only at MD or pain Renal/ Medical History: Denies: Hx Peritoneal Dialysis GI Medical History: Reports: Hx Hiatal Hernia - surgically repaired Past Surgical History: Reports: Hx Abdominal Surgery - hernia repair, Hx Section, Hx Cholecystectomy, Hx Herniorrhaphy, Hx Inguinal Hernia, Hx Tubal Ligation - Immunizations Immunizations up to date: No Hx Diphtheria, Pertussis, Tetanus Vaccination: No Physical Exam - Vital signs Vitals: Temp Pulse Resp BP Pulse Ox 98.7 F 104 H 18 179/106 H 97 02/28/20 17:52 02/28/20 17:52 02/28/20 17:52 02/28/20 17:52 02/28/20 17:52 Course - Vital Signs Vital signs: Temp Pulse Resp BP Pulse Ox 98.7 F 104 H 18 179/106 H 97 02/28/20 17:52 02/28/20 17:52 02/28/20 17:52 02/28/20 17:52 02/28/20 17:52 Discharge - Discharge Clinical Impression: Pain due to dental caries Condition: Stable Disposition: HOME, SELF-CARE Additional Instructions: 1. Take the medications as prescribed, if you were written antibiotics make sure that you finish them. 2. You need to follow up with a dentist for definitive evaluation and care of your dental problems 3. return to the ED for any facial swelling, fever > 101, difficulty swallowing or opening the mouth. 4. You may attempt to follow up with the [facility] for further care as well as through the dental list provided. 5. you may want to consider a dental discount plan such as [email or web address].com to help with costs of dental care as you do not have dental insurance Prescriptions: Naproxen 500 mg PO BID PRN #14 tablet PRN Reason: Hydrocodone/Acetaminophen [Martin 5-325 mg Tablet] 1 tab PO Q4 PRN #10 tablet PRN Reason: Penicillin V Potassium [Penicillin Vk 500 mg Tablet] 500 mg PO BID #20 tablet
== END 2020-02-28 19:39 | disposition home or self-care (01) ==
LOC: ER 17:38
DX: K02.9 Dental caries, unspecified (principal); K03.2 Erosion of teeth; K08.89 Other specified disorders of teeth and supporting structures; F17.200 Nicotine dependence, unspecified, uncomplicated; I10 Essential (primary) hypertension; Z88.6 Allergy status to analgesic agent
CPT/HCPCS: 99282

== ENCOUNTER 2020-03-08 17:41 | Emergency (ER) | payer SELFPAY ==
[2020-03-08 17:54] VITALS: BP 189/90
--- NOTE | 2020-03-08 18:07 | ER Document Report ---
HPI - HPI Patient complains to provider of: Thank Time Seen by Provider: 03/08/20 18:02 Onset: Other - This is a 39-year-old female was presented to the emergency room today stating that she has had a tooth ache she was here on the third provided prescription for penicillin VK which has not provided complete alleviation of the infection. Pain Level: 5 Associated Symptoms: None Exacerbated by: Denies Relieved by: Denies - REPRODUCTIVE Reproductive: DENIES: : Past Medical History - General Information source: Patient - Social History Smoking Status: Current Every Day Smoker Chew tobacco use (# tins/day): No Frequency of alcohol use: Rare Drug Abuse: None Lives with: Alone Family History: Reviewed & Not Pertinent Patient has homicidal ideation: No - Past Medical History Cardiac Medical History: Reports: Hx Hypertension - States only at MD or pain Renal/ Medical History: Denies: Hx Peritoneal Dialysis GI Medical History: Reports: Hx Hiatal Hernia - surgically repaired Past Surgical History: Reports: Hx Abdominal Surgery - hernia repair, Hx C esarean Section, Hx Cholecystectomy, Hx Herniorrhaphy, Hx Inguinal Hernia, Hx Tubal Ligation - Immunizations Immunizations up to date: No Hx Diphtheria, Pertussis, Tetanus Vaccination: No Vertical Provider Document - CONSTITUTIONAL Agree With Documented VS: Yes - INFECTION CONTROL TRAVEL OUTSIDE OF THE [place] IN LAST 30 DAYS: No - HEENT HEENT: Atraumatic, Conjuctival Injection, Normocephalic, PERRLA Mouth Diagram: 1 - Severe decay - NECK Neck: Normal Inspection - RESPIRATORY Respiratory: Breath Sounds Normal - CARDIOVASCULAR Cardiovascular: Regular Rate, Regular Rhythm - GI/ABDOMEN Gastrointestinal: Abdomen Soft, Abdomen Non-Tender - MUSCULOSKELETAL/EXTREMETIES Musculoskeletal/Extremeties: MAEW - NEURO Level of Consciousness: Awake, Alert Motor/Sensory: No Motor Deficit - DERM Integumentary: Warm, Dry Course - Re-evaluation Re-evalutation: 03/08/20 18:04 Oral floor induration no trismus - Vital Signs Vital signs: Temp Pulse Resp BP Pulse Ox 98.4 F 98 18 189/90 H 98 03/08/20 17:54 03/08/20 17:54 03/08/20 17:54 03/08/20 17:54 03/08/20 17:54 Discharge - Discharge Clinical Impression: Dentalgia Condition: Good Disposition: HOME, SELF-CARE Instructions: [facility], Toothache ([facility]), Clindamycin ([facility]) Additional Instructions: Salt water gargles 4-5 times a day. Prescriptions: Clindamycin HCl [Cleocin HCl] 150 mg PO TID #30 capsule Diclofenac Sodium 75 mg PO BID PRN #20 tablet.dr ORDOÑEZ Reason:
== END 2020-03-08 18:10 | disposition home or self-care (01) ==
LOC: ER 17:41
DX: K08.9 Disorder of teeth and supporting structures, unspecified (principal); F17.200 Nicotine dependence, unspecified, uncomplicated; I10 Essential (primary) hypertension
CPT/HCPCS: 99282

== ENCOUNTER 2020-05-26 10:25 | Emergency (ER) | payer SELFPAY ==
[2020-05-26] MEDS ORDERED: HYDROCODONE/ACETAMINOPHEN 5-325 MG (6 TAB/ER DISP) PO PRN (11:29)
--- NOTE | 2020-05-26 11:36 | ER Document Report ---
ED General - General Chief Complaint: Abscess Stated Complaint: ABSCESS/GROIN AREA Time Seen by Provider: 05/26/20 11:23 TRAVEL OUTSIDE OF THE [place] IN LAST 30 DAYS: No - HPI Notes: 39-year-old female presents emergency room today with complaints of a right groin abscess that started draining this morning, states she noticed it about 3 days ago. Has tried [id number] antibiotic ointment without relief, has not tried any heat or ice. Denies any history of MRSA as far she knows. Pain is approximately 4 out of 5, throbbing, constant. 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 Denies fevers, chills, chest pain,palpitations, shortness of breath, dyspnea, nausea, vomiting, diarrhea, abdominal pain, hematuria,blurred vision, double vision, loss of vision, speech changes, LH, dizziness, syncope, headaches, wheezing, ST, URI, neck pain, weakness, bowel or bladder dysfunction, saddle anesthesia, numbness or tingling in bilateral upper or lower extremities equally, muscle paralysis, weakness in bilateral upper or lower extremities equally. Denies IV drug use. MEDICATIONS: I agree with the patient medications as charted by the RN. ALLERGIES: I agree with the allergies as charted by the RN. PAST MEDICAL HISTORY/PAST SURGICAL HISTORY: Reviewed and agree as charted by RN. SOCIAL HISTORY: Reviewed and agree as charted by RN. FAMILY HISTORY: No significant familial comorbid conditions directly related to patient complaint EXAM: Reviewed vital signs as charted by RN. REVIEW OF SYSTEMS:reviewed vital signs by RN CONSTITUTIONAL : Denies fever, chills, or sweats. Denies recent illness. EENT: Denies eye, ear, throat, or mouth pain or symptoms. Denies nasal or sinus congestion or discharge. Denies throat, tongue, or mouth swelling or difficulty swallowing. CARDIOVASCULAR: Denies chest pain. Denies palpitations or racing or irregular heart beat. Denies ankle edema. RESPIRATORY: Denies cough, cold, or chest congestion. Denies shortness of breath, difficulty breathing, or wheezing. GASTROINTESTINAL: Denies abdominal pain or distention. Denies nausea, vomiting, or diarrhea. Denies blood in vomitus, stools, or per rectum. Denies black, tarry stools. Denies constipation. GENITOURINARY: Denies difficulty urinating, painful urination, burning, frequency, blood in urine, or discharge. FEMALE GENITOURINARY: Denies vaginal bleeding, heavy or abnormal periods, irregular periods. Denies vaginal discharge or odor. MUSCULOSKELETAL: Denies back or neck pain or stiffness. Denies joint pain or swelling. SKIN: Draining abscess to right groin. denies rash, lesions or sores. HEMATOLOGIC : Denies easy bruising or bleeding. LYMPHATIC: Denies swollen, enlarged glands. NEUROLOGICAL: Denies confusion or altered mental status. Denies passing out or loss of consciousness. Denies dizziness or lightheadedness. Denies headache. Denies weakness or paralysis or loss of use of either side. Denies problems with gait or speech. Denies sensory loss, numbness, or tingling. Denies seizures. PSYCHIATRIC: Denies anxiety or stress. Denies depression, suicidal ideation, or homicidal ideation. ALL OTHER SYSTEMS REVIEWED AND NEGATIVE. PHYSICAL EXAMINATION: GENERAL: Well-appearing, well-nourished and in no acute distress. HEAD: Atraumatic, normocephalic. EYES: Pupils equal round and reactive to light, extraocular movements intact, conjunctiva are normal. ENT: Nares patent, oropharynx clear without exudates. Moist mucous membranes. NECK: Normal range of motion, supple without lymphadenopathy LUNGS: Breath sounds clear to auscultation bilaterally and equal. No wheezes rales or rhonchi. HEART: Regular rate and rhythm without murmurs ABDOMEN: Soft, nontender, nondistended abdomen. No guarding, no rebound. No masses appreciated. Female : deferred Musculoskeletal: Normal range of motion, no pitting or edema. No cyanosis. NEUROLOGICAL: Cranial nerves grossly intact. Normal speech, normal gait. Normal sensory, motor exams PSYCH: Normal mood, normal affect. SKIN: Warm, Dry, normal turgor, no rashes or lesions noted. Right groin with approximately 2 cm x 2 cm draining abscess. no surrounding erythema induration warmth to touch. No surrounding lymphadenopathy Dictation was performed using [employer] recognition software - Related Data Allergies/Adverse Reactions: tramadol Allergy (Verified 03/08/20 17:49) Past Medical History - General Information source: Patient - Social History Smoking Status: Unknown if Ever Smoked Family History: Reviewed & Not Pertinent - Past Medical History Cardiac Medical History: Reports: Hx Hypertension - States only at MD or pain Renal/ Medical History: Denies: Hx Peritoneal Dialysis GI Medical History: Reports: Hx Hiatal Hernia - surgically repaired Past Surgical History: Reports: Hx Abdominal Surgery - hernia repair, Hx Section, Hx Cholecystectomy, Hx Herniorrhaphy, Hx Inguinal Hernia, Hx Tubal Ligation - Immunizations Immunizations up to date: No Hx Diphtheria, Pertussis, Tetanus Vaccination: No Physical Exam - Vital signs Vitals: Temp Pulse Resp BP Pulse Ox 98.2 F 98 18 146/91 H 96 05/26/20 10:50 05/26/20 10:50 05/26/20 10:50 05/26/20 10:50 05/26/20 10:50 Course - Re-evaluation Re-evalutation: 05/26/20 11:36 Afebrile vital stable no distress. Nurses notes reviewed. Patient has a draining abscess to her right groin, it looks as most of that has already drained, wound culture has been obtained. Patient states her tetanus was less than 5 years but not quite 10 years. Denies any history is for shingles of MRSA. Discussed with patient that is important for her to apply moist heat 20 minutes on 20 minutes off several times a day. To take antibiotics with food, avoid picking or squeezing abscess. She can take [id number] Tylenol and ibuprofen, but for severe pain she can take Mooers, do not drive, drink or operate heavy machinery while taking medication can cause sedation or impairment of cognitive function. After performing a Medical Screening Examination, I estimate there is LOW risk for OPEN FRACTURE, COMPARTMENT SYNDROME, TENDON RUPTURE, ACUTE NEUROVASCULAR INJURY, or RETAINED FOREIGN BODY, thus I consider the discharge disposition reasonable. Also, there is no evidence or peritonitis, sepsis, or toxicity. I have reevaluated this patient multiple times and no significant life threatening changes are noted. The patient and I have discussed the diagnosis and risks, and we agree with discharging home with close follow-up with the understanding that symptoms and presentations can change. We also discussed returning to the Emergency Department immediately if new or worsening symptoms occur. We have discussed the symptoms which are most concerning (e.g., changing or worsening pain, fever, numbness, weakness, cool or painful digits) that necessitate immediate return. - Vital Signs Vital signs: Temp Pulse Resp BP Pulse Ox 98.2 F 98 18 146/91 H 96 05/26/20 10:50 05/26/20 10:50 05/26/20 10:50 05/26/20 10:50 05/26/20 10:50 Discharge - Discharge Clinical Impression: right groin draining abscess Condition: Stable Disposition: HOME, SELF-CARE Instructions: MRSA Cellulitis ([facility]), Abscess ([facility]), Oral Narcotic Medication ([facility]), Clindamycin ([facility]) Additional Instructions: Please clean this area with soap and water twice daily and take oral antibiotic as directed. Do not drive, drink or operate heavy machinery while taking medication because sedation or impairment of cognitive function. Please return if you develop fever, vomiting, the pain at the site worsens, you notice spreading redness from the area, or you have any other symptoms that are concerning to you. Return immediately for any new or worsening symptoms. Follow up with primary care provider, call tomorrow to make followup appointment. Prescriptions: Clindamycin HCl 300 mg PO Q6H #28 capsule Forms: Return to Work Referrals: KULWINDER PECK DO [NO LOCAL MD] - Follow up as needed
[2020-05-26 11:54] VITALS: BP 144/98
== END 2020-05-26 11:58 | disposition home or self-care (01) ==
LOC: ER 10:25
DX: L02.211 Cutaneous abscess of abdominal wall (principal); Z88.6 Allergy status to analgesic agent
CPT/HCPCS: 87070; 87077; 87205; 99284

== ENCOUNTER 2020-06-25 16:10 | Emergency (ER) | payer OTHER ==
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
[2020-06-25] MEDS ORDERED: KETOROLAC TROMETHAMINE 60 MG/2 ML SDV IM ONE (17:08)
[2020-06-25 17:36] VITALS: BP 149/100
== END 2020-06-25 17:45 | disposition home or self-care (01) ==
LOC: ER 16:10
DX: S16.1XXA Strain of muscle, fascia and tendon at neck level, initial encounter (principal); M54.5 Low back pain; M54.6 Pain in thoracic spine; V49.40XA Driver injured in collision with unspecified motor vehicles in traffic accident, initial encounter; F17.210 Nicotine dependence, cigarettes, uncomplicated
CPT/HCPCS: 99284; 96372; J1885